=== PATIENT | male | born 1930 | race Caucasian/White ===

== ENCOUNTER 2019-05-05 03:15 | Inpatient (IN) | payer MEDICARE, BC ==
[2019-05-05 04:31] LABS: Troponin I 0.048 ng/mL (< 0.028)
[2019-05-05 05:29] VITALS: BMI 26.3
[2019-05-05 07:19] LABS: Troponin I 0.041 ng/mL (< 0.028)
[2019-05-05] MEDS ORDERED: Senokot S 8.6-50 MG TAB PO PRN (08:22)
[2019-05-05] MEDS ORDERED: Dextrose 50% Abboject 50 ML SYRINGE SLOW IVP PRN (08:22)
[2019-05-05] MEDS ORDERED: Acetaminophen 325 MG TAB PO PRN (08:22)
[2019-05-05] MEDS ORDERED: HumaLOG 300 UNITS/3 ML VIAL SC PRN ×2 (08:22)
[2019-05-05] MEDS ORDERED: Dextrose 5% in Water 1,000 ML IV PRN (08:22)
[2019-05-05] MEDS ORDERED: Bisacodyl 5 MG TAB PO PRN (08:22)
[2019-05-05] MEDS ORDERED: glyBURIDE 5 MG TAB PO SCH (09:00)
[2019-05-05] MEDS: Alogliptin 25 MG TAB PO SCH (09:37)
[2019-05-05] MEDS: Lisinopril 5 MG TAB PO SCH (09:37)
[2019-05-05] MEDS: Potassium Chloride 10 MEQ TAB PO SCH (09:37)
[2019-05-05] MEDS: Tamsulosin HCl 0.4 MG CAP PO SCH ×2 (09:37→09:44)
[2019-05-05] MEDS: Famotidine 20 MG TAB PO SCH ×2 (09:37→20:23)
[2019-05-05] MEDS: Apixaban 5 MG TAB PO SCH ×2 (09:37→20:23)
--- NOTE | 2019-05-05 10:02 | HP ---
PRIMARY CARE PHYSICIAN: Dr. Urbina. CHIEF COMPLAINT: "I couldn't breathe last night." HISTORY OF PRESENT ILLNESS: Mr. Pantoja is a pleasant 88-year-old gentleman, who has a history of coronary artery disease as well as diabetes mellitus. He says that the night before last, he was having some difficulty breathing. He says it was mostly when he tried to lay down at night and he says it was little bit scary. He says he has never had any problems like this before and then the night prior to admission, it happened once again. He denied having any chest pain. No palpitations that he could feel. He says he felt kind of rotten in the last few days and felt like something was "brewing" and as a result, he came to the ER for evaluation. In the ER, he had a chest x-ray as well as a CT angiogram. The CTA of the chest was negative for PE, but did demonstrate bilateral pleural effusions and increased pulmonary vascular markings consistent with congestive heart failure and he is being admitted for this. He also notes some swelling in his feet, but denies any leg swelling. He denies any dyspnea on exertion or chest pain with dyspnea. He says his only other complaints are being a little bit constipated and having a runny nose and a slight cough. REVIEW OF SYSTEMS: CONSTITUTIONAL: There has been no fevers or chills. No night sweats. No weight loss. HEENT: No headaches. No dizziness. No visual changes. No sore throat. He did have some rhinorrhea. NECK: No neck pain. No adenopathy. PULMONARY: He has had a dry cough. No wheezing. No rhonchi. CARDIOVASCULAR: As the history of present illness. GASTROINTESTINAL: He complains of some constipation, but no hematuria. No hematochezia. No melena. GENITOURINARY: There is no urinary frequency. No urgency. No hematuria. MUSCULOSKELETAL: No muscle pains, weakness, or joint pains. NEUROLOGIC: No focal weakness or numbness. No seizures. PSYCHIATRIC: No symptoms of anxiety or depression. SKIN AND INTEGUMENT: No skin changes. No rash. PAST MEDICAL HISTORY: Significant for coronary artery disease, diabetes mellitus type 2, hypertension, and atrial flutter. PAST SURGICAL HISTORY: He has had a lap chandrakant, stent placement, ablation, bilateral hip surgery, cataract surgeries, and an ablation for atrial flutter. ALLERGIES: NO KNOWN DRUG ALLERGIES. FAMILY HISTORY: He says his father had heart disease and he says his brother may have, but he lived to be . SOCIAL HISTORY: He is . He says he has been for 65 years. He has 4 children. When asked if he would want to be resuscitated, he says, "no, please just let me go on" and therefore, he does not want any chest compressions or intubation and therefore, he is a DNR. CURRENT MEDICATIONS: His current medications are taken from the ER records and include; 1. Eliquis 5 mg twice daily. 2. Quinapril 5 mg once a day. 3. Potassium chloride 20 mEq one tablet twice a day. 4. Furosemide 40 mg daily. 5. Aspirin 81 mg daily. 6. Meclizine 25 mg a day. 7. Multivitamin once daily. 8. Glyburide 5 mg once a day. 9. Januvia 25 mg once daily. 10. Atorvastatin 40 mg daily. 11. Flomax 0.4 mg daily. PHYSICAL EXAMINATION: GENERAL: He is alert and oriented. He appears to be in no acute distress. He is well developed and well nourished. VITAL SIGNS: Blood pressure was 128/77, heart rate 93, respiratory rate of 22, and temperature is 97.4. HEENT: His pupils are equal, round, and reactive to light and accommodation. Extraocular muscles are intact. His sclerae are anicteric. Throat, no erythema, no exudates. NECK: No adenopathy. No bruits. LUNGS: He has bilateral rales to about the mid to upper lung field and decreased breath sounds at both bases. There was no wheezing. No rhonchi. Normal excursion. CARDIOVASCULAR: He has a normal S1 and S2. There is no S3 or S4. He did have a slight grade 2/6 systolic murmur. No clicks or rubs. No gallop. ABDOMEN: Soft. It is nontender and nondistended. Positive for bowel sounds. There is no rebound. No guarding. No organomegaly. EXTREMITIES: He had no calf tenderness. No joint effusions. NEUROLOGIC: His cranial nerves are intact. Muscle strength is 5/5 in both his upper and lower extremities. SKIN AND INTEGUMENT: He does have some chronic venous stasis changes on both lower extremities. 1+ to 2+ pedal edema. He does have palpable dorsalis pedis pulses. No other significant skin lesions. IMAGING RESULTS: This is by my reading on his EKG is sinus rhythm, the rate is 99. There were some nonspecific ST wave changes. On his chest x-ray, there was some evidence of cardiomegaly as well as increased pulmonary vascular markings and obscuration of both hemidiaphragms. This is also by my reading. He had a CT angiogram of the chest showing bilateral pulmonary edema as well as bilateral pleural effusions. LABORATORY RESULTS: White blood cell count 10, hemoglobin 13.7, hematocrit is 42.8, and platelet count is 147. Sodium 142, potassium 3.7, chloride is 108, CO2 is 25, BUN of 13, creatinine 0.94, and glucose is 162. Natriuretic peptide was 1264. ASSESSMENT AND PLAN: 1. This is a pleasant 88-year-old gentleman, who presents to the emergency room with shortness of breath. He says it is primarily when he lays back. Therefore, this could be considered orthopnea. He also has an elevated BNP as well as radiographic evidence of volume overload in the setting of known heart disease. He will be admitted for congestive heart failure exacerbation. He has already been started on IV Lasix. We will continue this as well as his SULY inhibitor, the quinapril and we will contact Dr. Hurst's office to see when and if he has had his last echo in the last 6 months to year. If there has not been a recent echo, then we will go ahead and obtain one. 2. Diabetes mellitus. We will continue his home medications as well as a sliding scale. 3. Coronary artery disease. This appears to be clinically stable. However, if his echo shows significant change in his ejection fraction, then Cardiology may need to be consulted and ischemic heart disease ruled out. 4. Chronic anticoagulation. We will continue Eliquis. This is likely due to his history of atrial flutter in the past and as such, he will not need any deep venous thrombosis prophylaxis. Job ID: [id number]
[2019-05-05] MEDS: Furosemide 40 MG/4 ML VIAL SLOW IVP SCH (14:13)
[2019-05-05] MEDS: Atorvastatin Calcium 40 MG TAB PO SCH (20:23)
[2019-05-06 05:02] LABS: #Basophils 0.1 thou/uL (0.0-0.2); #Eosinphils 0.3 thou/uL (0.0-0.7); #Monocytes 0.9 thou/uL (0.11-0.59); #Neutrophils 6.4 thou/uL (1.40-6.50); %Basophils 0.7 % (0.0-1.0); %Eosinophils 2.8 % (0.0-10.0); %Lymphocytes 20.9 % (21.0-51.0); %Monocytes 9.6 % (0.0-10.0); %Neutrophils 66.1 % (42.0-75.0); Hemoglobin 13.2 g/dL (14.0-18.0); Mean Corpuscular HGB CONC 32.8 g/dL (32.0-36.0); Mean Corpuscular Hemoglobin 29.1 pg (27.0-31.0); Mean Corpuscular Volume 88.8 fL (78.0-98.0); Mean Platelet Volume 9.5 fL (7.4-10.4); Platelet Count 135 thou/uL (130-400); RBC Distribution Width 13.6 % (11.5-14.5); Red Blood Cell (RBC) Count 4.55 mill/uL (4.70-6.10); White Blood Cell (WBC) Count 9.7 thou/uL (4.8-10.8)
[2019-05-06 05:24] LABS: Anion Gap 14 mmol/L (10-20); BUN (Urea Nitrogen) 14 mg/dL (8.4-25.7); Calc. Creatinine Clearance 93 mL/min (70-130); Calcium 9.3 mg/dL (7.8-10.44); Carbon Dioxide 26 mmol/L (23-31); Chloride 102 mmol/L (98-107); Estimated GFR-MDRD Greater than 90; Glucose 83 mg/dL (83-110); Potassium 3.1 mmol/L (3.5-5.1); Sodium 139 mmol/L (136-145)
[2019-05-06] MEDS: Furosemide 40 MG/4 ML VIAL SLOW IVP SCH ×2 (06:08→15:10)
[2019-05-06] MEDS ORDERED: Potassium Chloride 20 MEQ TAB PO SCH ×4 (08:00→16:00)
[2019-05-06] MEDS: Potassium Chloride 10 MEQ TAB PO SCH (09:19)
[2019-05-06] MEDS: glyBURIDE 5 MG TAB PO SCH (09:20)
[2019-05-06] MEDS: Alogliptin 25 MG TAB PO SCH (09:20)
[2019-05-06] MEDS: Famotidine 20 MG TAB PO SCH ×2 (09:20→20:37)
[2019-05-06] MEDS: Apixaban 5 MG TAB PO SCH ×2 (09:20→20:38)
[2019-05-06] MEDS: Lisinopril 5 MG TAB PO SCH (09:20)
[2019-05-06] MEDS: Tamsulosin HCl 0.4 MG CAP PO SCH (09:20)
--- NOTE | 2019-05-06 11:22 | PDOC.HOSPP ---
- Subjective Encounter Date: 05/06/19 Encounter Time: 10:00 Subjective: Mr. Pantoja was seen today in follow-up of CHF exacerbation. He reports feeling much better. He says he did not have trouble sleeping due to shortness of breath last night. - Objective Vital Signs & Weight: Vital Signs (12 hours) Temp Pulse Resp BP BP BP Pulse Ox 05/06/19 09:20 68 120/90 05/06/19 07:29 98 F 68 32 H 120/90 96 05/06/19 04:00 97.3 F L 93 20 125/85 95 05/06/19 00:00 98.0 F 71 19 106/65 99 Weight Weight 217 lb 11.2 oz I&O: 05/05/19 05/06/19 05/07/19 06:59 06:59 06:59 Intake Total 1320 Output Total 750 1800 1165 Balance -898 -018 -3699 Result Diagrams: 05/06/19 04:27 05/06/19 04:27 Additional Labs: Accuchecks 05/06/19 05/05/19 05/05/19 05:48 19:44 17:57 POC Glucose 79 142 H 86 05/05/19 16:48 POC Glucose 67 L ROS - Medication Medications: Active Medications Generic Name Dose Route Start Last Admin Trade Name Freq PRN Reason Stop Dose Admin Alogliptin Benzoate 25 mg 05/05/19 09:00 05/06/19 09:20 Alogliptin PO 25 mg DAILY TANVI Administration Apixaban 5 mg 05/05/19 09:00 05/06/19 09:20 Eliquis PO 5 mg BID TANVI Administration Atorvastatin Calcium 40 mg 05/05/19 21:00 05/05/19 20:23 Lipitor PO 40 mg HS TANVI Administration Famotidine 20 mg 05/05/19 09:00 05/06/19 09:20 Pepcid PO 20 mg BID TANVI Administration Furosemide 40 mg 05/05/19 14:00 05/06/19 06:08 Lasix SLOW IVP 40 mg 0600,1400 TANVI Administration Glyburide 5 mg 05/06/19 07:30 05/06/19 09:20 Diabeta PO 5 mg DAILY-AC TANVI Administration Insulin Human Lispro 0 units 05/05/19 08:22 05/05/19 11:28 Humalog SC 2 units .MODERATE SLIDING SC PRN Administration Moderate Correctional Scale Lisinopril 5 mg 05/05/19 09:00 05/06/19 09:20 Zestril PO 5 mg DAILY TANVI Administration Potassium Chloride 10 meq 05/05/19 09:00 05/06/19 09:19 Klor-Con 10 PO 10 meq DAILY TANVI Administration Tamsulosin HCl 0.4 mg 05/05/19 09:00 05/06/19 09:20 Flomax PO 0.4 mg DAILY TANVI Administration - Exam Eye: PERRL, anicteric sclera Neck: supple, symmetric, no JVD Heart: RRR, no gallops, no rubs, normal peripheral pulses, II/IV Respiratory: no wheezes, no ronchi, rales (+ rales at both bases, and decreased breath sounds at the bases) Gastrointestinal: soft, non-tender, non-distended, normal bowel sounds, no palpable masses Extremities: no cyanosis, no clubbing, no edema Hosp A/P (1) Acute on chronic diastolic CHF (congestive heart failure), NYHA class 3 Code(s): I50.33 - ACUTE ON CHRONIC DIASTOLIC (CONGESTIVE) HEART FAILURE Status : Acute (2) DM2 (diabetes mellitus, type 2) Status: Chronic Qualifiers: Diabetes mellitus middle or intermediate school principal insulin use: without middle or intermediate school principal use Diabetes mellitus complication status: with unspecified complications (3) HTN (hypertension) Code(s): I10 - ESSENTIAL (PRIMARY) HYPERTENSION Status: Chronic Qualifiers: Hypertension type: essential hypertension Qualified Code(s): I10 - Essential (primary) hypertension - Plan * Acute on chronic diastolic heart failure- improving- continue to diurese * Acute systolic heart failure- his EF is lower than a few months ago * Will consult Dr. Hurst as well * HTN- blood pressure is controlled * DM- blood glucose is a bit brittle- will hold off on correction for now, he may need to be changed from Glyburide to Amaryl
--- NOTE | 2019-05-06 17:14 | CON ---
DATE OF CONSULTATION: HISTORY OF PRESENT ILLNESS: An 88-year-old gentleman, who presents with increasing dyspnea. The patient has a previous history of coronary artery disease. He has previously undergone PTCA and stent placement in 1997. The patient has done remarkably well on medical therapy. He also has a history of paroxysmal atrial fibrillation.H had been on anticoagulation therapy. The patient has known aortic stenosis. He has been asymptomatic until a few weeks ago, he started noticing increasing dyspnea with minimal exertion. The patient presented to emergency room with marked dyspnea. He denied having any chest discomfort. PAST MEDICAL HISTORY: 1. Coronary artery disease. 2. Atrial fibrillation. 3. Hypertension. 4. Dyslipidemia. 5. Diabetes mellitus. 6. History of atrial flutter/fibrillation. PAST SURGICAL HISTORY: Hip surgery and cataract surgery. ALLERGIES: NO KNOWN DRUG ALLERGIES. FAMILY HISTORY: No strong family history of heart disease. SOCIAL HISTORY: Nonsmoker. MEDICATIONS: See nursing list. REVIEW OF SYSTEMS: Ten-point system otherwise unremarkable. PHYSICAL EXAMINATION: GENERAL/VITAL SIGNS: Well-developed gentleman, in no acute distress with a blood pressure of 115/72. NECK: No jugular venous distention. LUNGS: Few crackles in both bases. HEART: Regular rate and rhythm. Normal S1 and S2 with a 3/6 systolic murmur. ABDOMEN: Nondistended. EXTREMITIES: Showed trace edema. VASCULAR: Radial pulses are 2+. LABORATORY RESULTS: White blood cell count 9.7, hemoglobin 13.2, hematocrit 40.4, platelets 135. Sodium 139, potassium 3.1, chloride 102, bicarbonate 26, BUN 14, creatinine 0.76. Troponin is 0.014. His EKG revealed sinus rhythm with premature ventricular contractions. IMPRESSION: 1. Congestive heart failure. 2. Aortic stenosis. 3. Cardiomyopathy. 4. Severe mitral regurgitation. 5. History of PTCA and stent placement. 6. Diabetes mellitus. This gentleman presents with new onset congestive heart failure. His followup echocardiogram revealed severe aortic stenosis. With his advanced age and lower ejection fraction, we would recommend the patient be evaluated for TAVR. At this time, the patient is being diuresed with IV Lasix. We will follow this patient with you in this hospitalization, Job ID: [id number] [facility]
[2019-05-06] MEDS: Atorvastatin Calcium 40 MG TAB PO SCH (20:38)
[2019-05-07] MEDS: Furosemide 40 MG/4 ML VIAL SLOW IVP SCH ×2 (06:36→13:37)
[2019-05-07] MEDS: glyBURIDE 5 MG TAB PO SCH (07:33)
[2019-05-07] MEDS ORDERED: Potassium Chloride 20 MEQ TAB PO SCH (09:00)
[2019-05-07 09:07] LABS: Anion Gap 12 mmol/L (10-20); BUN (Urea Nitrogen) 13 mg/dL (8.4-25.7); Calc. Creatinine Clearance 79 mL/min (70-130); Calcium 9.4 mg/dL (7.8-10.44); Carbon Dioxide 29 mmol/L (23-31); Chloride 103 mmol/L (98-107); Estimated GFR-MDRD 80; Glucose 101 mg/dL (83-110); Sodium 140 mmol/L (136-145)
[2019-05-07] MEDS: Famotidine 20 MG TAB PO SCH (09:28)
[2019-05-07] MEDS: Alogliptin 25 MG TAB PO SCH (09:28)
[2019-05-07] MEDS: Apixaban 5 MG TAB PO SCH (09:28)
[2019-05-07] MEDS: Lisinopril 5 MG TAB PO SCH (09:29)
[2019-05-07] MEDS: Tamsulosin HCl 0.4 MG CAP PO SCH (09:38)
[2019-05-07 12:04] VITALS: BP 103/64; TEMP 97.4
--- NOTE | 2019-05-07 12:24 | PDOC.HOSPP ---
- Subjective Encounter Date: 05/07/19 Encounter Time: 12:23 Subjective: Mr. Pantoja was seen today in follow-up of CHF exacerbation. He does not have any complaints. - Objective Vital Signs & Weight: Vital Signs (12 hours) Temp Pulse Pulse Pulse Resp BP BP 05/07/19 12:00 97.4 F L 65 16 05/07/19 09:29 94 05/07/19 09:06 100 89 141/77 H 129/68 05/07/19 08:00 05/07/19 07:56 97.6 F 94 16 05/07/19 03:52 97.4 F L 89 16 BP Pulse Ox Pulse Ox Pulse Ox 05/07/19 12:00 103/64 95 05/07/19 09:29 05/07/19 09:06 97 95 05/07/19 08:00 94 L 05/07/19 07:56 125/74 94 L 05/07/19 03:52 122/80 96 Weight Weight 217 lb 1.6 oz I&O: 05/06/19 05/07/19 05/08/19 06:59 06:59 06:59 Intake Total 1320 2391 Output Total 1800 2430 Balance -480 -39 Result Diagrams: 05/06/19 04:27 05/07/19 08:24 Additional Labs: Accuchecks 05/07/19 05/07/19 05/06/19 10:48 05:58 20:36 POC Glucose 171 H 91 160 H 05/06/19 17:25 POC Glucose 76 ROS - Medication Medications: Active Medications Generic Name Dose Route Start Last Admin Trade Name Freq PRN Reason Stop Dose Admin Alogliptin Benzoate 25 mg 05/05/19 09:00 05/07/19 09:28 Alogliptin PO 25 mg DAILY TANVI Administration Apixaban 5 mg 05/05/19 09:00 05/07/19 09:28 Eliquis PO 5 mg BID TANVI Administration Atorvastatin Calcium 40 mg 05/05/19 21:00 05/06/19 20:38 Lipitor PO 40 mg HS TANVI Administration Famotidine 20 mg 05/05/19 09:00 05/07/19 09:28 Pepcid PO 20 mg BID TANVI Administration Furosemide 40 mg 05/05/19 14:00 05/07/19 06:36 Lasix SLOW IVP 40 mg 0600,1400 TANVI Administration Glyburide 5 mg 05/06/19 07:30 05/07/19 07:33 Diabeta PO 5 mg DAILY-AC TANVI Administration Insulin Human Lispro 0 units 05/05/19 08:22 05/05/19 11:28 Humalog SC 2 units .MODERATE SLIDING SC PRN Administration Moderate Correctional Scale Lisinopril 5 mg 05/05/19 09:00 05/07/19 09:29 Zestril PO 5 mg DAILY TANVI Administration Potassium Chloride 20 meq 05/07/19 09:00 05/07/19 09:29 K-Dur PO 20 meq QAM TANVI Administration - Exam Eye: PERRL, anicteric sclera Neck: supple, symmetric, no JVD, no thyromegaly Heart: RRR, murmur present Respiratory: CTAB, no wheezes, no rales, no ronchi Gastrointestinal: soft, non-tender, non-distended, normal bowel sounds Extremities: no edema Hosp A/P (1) Acute on chronic diastolic CHF (congestive heart failure), NYHA class 3 Code(s): I50.33 - ACUTE ON CHRONIC DIASTOLIC (CONGESTIVE) HEART FAILURE Status : Acute (2) DM2 (diabetes mellitus, type 2) Status: Chronic Qualifiers: Diabetes mellitus intermediate manager insulin use: without intermediate manager use Diabetes mellitus complication status: with unspecified complications (3) HTN (hypertension) Code(s): I10 - ESSENTIAL (PRIMARY) HYPERTENSION Status: Chronic Qualifiers: Hypertension type: essential hypertension Qualified Code(s): I10 - Essential (primary) hypertension - Plan * Acute on chronic diastolic heart failure-improved * Acute systolic heart failure- likely from aortic stenosis. Cardiology evaluation noted * HTN- blood pressure is controlled * DM- blood glucose is stable * Stable for discharge home
[2019-05-07] MEDS ORDERED: Tamsulosin HCl 0.4 MG CAP PO SCH (21:00)
--- NOTE | 2019-05-07 23:27 | DIS ---
DATE OF ADMISSION: 05/05/2019 DATE OF DISCHARGE: 05/07/2019 PRIMARY CARE PHYSICIAN: Delvin Urbina MD DISCHARGE DISPOSITION: Home. PRIMARY DISCHARGE DIAGNOSES: 1. Acute on chronic systolic heart failure. 2. Acute respiratory failure secondary to #1. 3. Critical aortic stenosis. 4. Severe mitral regurgitation. 5. Hypertension. 6. Diabetes mellitus, type 2. 7. Dyslipidemia. DISCHARGE MEDICATIONS: 1. Carvedilol 3.125 mg twice daily. 2. Lasix 40 mg twice a day. 3. Aspirin 81 mg daily. 4. Eliquis 5 mg twice daily. 5. Tylenol 1000 mg q.6 as needed. 6. Flomax 0.4 mg daily. 7. Januvia 50 mg daily. 8. Accupril 10 mg a day. 9. Potassium chloride 10 mEq daily. 10. Multivitamin once a day. 11. Antivert 12.5 mg daily. 12. Glyburide 5 mg daily. 13. Lipitor 40 mg daily. 14. Amlodipine atorvastatin 10/40 at bedtime. PROCEDURES DONE DURING THE ADMISSION: The patient had an echocardiogram in which the ejection fraction was estimated at 25% to 30%. There was severe aortic stenosis with a valve separation of 0.81 cm. The patient also had severe mitral regurgitation. CODE STATUS: DNAR. ALLERGIES: NO KNOWN DRUG ALLERGIES. HOSPITAL COURSE: Mr. Pantoja is a pleasant 88-year-old gentleman, who stated that he was having difficulty breathing. He had not had a problem like this before. He came to the ER and was evaluated and found to be in acute heart failure. He had a previous echo in which his ejection fraction was normal. A repeat echo was done on this occasion, which is several months from his prior demonstrating a significant drop in his ejection fraction as well as worsening aortic stenosis. His inspector integrated circuits was consulted. It is recommended that he undergo aortic valve replacement but given his advanced age, low ejection fraction and general overall weakness, it is recommended that he undergo a transcutaneous aortic valve replacement or TAVR. Dr. Hurst will see him in the outpatient setting in order to have this arranged and his appointment with Dr. Hurst was made prior to his discharge. Job ID: [id number]
--- NOTE | 2019-05-11 02:03 | PQF ---
[employer] Crystal Reports Winform ViewerAMILCAR AVENDAÑO [place] MD [id number] [facility] [place], [place]-[id number] CLINICAL DOCUMENTATION CLARIFICATION FORM: POST DISCHARGE Addendum to original discharge summary date: ____ Late entry note date: __ DATE: 05/11/2019 ATTN: [place] MD Please exercise your independent, professional judgment in responding to the clarification form. Clinical indicators are provided on the bottom of this form for your review Please check appropriate box(s) to clarify if the following diagnosis has been ruled in or ruled out: Acute respiratory failure [ X ] Ruled in diagnosis [ X] Continue to treat [ ] Resolved [ ] Ruled out diagnosis [ ] Cannot rule out diagnosis [ ] Other diagnosis [ ] Unable to determine In addition, please specify: Present on Admission (POA): [ X ] Yes [ ] No [ ] Unable to determine For continuity of documentation, please document condition throughout progress notes and discharge summary. Thank You. CLINICAL INDICATORS - SIGNS / SYMPTOMS / LABS -Acute respiratory failure sec to CHF-DS, 05/07, [place] MD -O2 [id number] signs, report 05/07 -He has bilateral rales to about the mid to upper lung field and decreased breath sounds at both bases-H&P, 05/05, [place] MD RISK FACTORS -Acute on chronic systolic heart failure-DS, 05/07, [place] MD -Aortic stenosis-Hospital PN, 05/07, [place] MD TREATMENTS O2 delivery method: Nasal Cannula-Vital signs, report 05/05, (This form is maintained as a part of the permanent medical record) [id number]. All Rights Reserved Anh Zhang [not provided] [not provided] LIZETH
== END 2019-05-07 15:28 | disposition home health service (06) | DRG 291 ==
LOC: ERS 03:15 → 2SE 03:45
PROVIDERS: ADMIT Hospitalist; ATTEND Hospitalist
DX: I11.0 Hypertensive heart disease with heart failure (principal); J96.00 Acute respiratory failure, unspecified whether with hypoxia or hypercapnia; I35.0 Nonrheumatic aortic (valve) stenosis; Z66 Do not resuscitate; I50.43 Acute on chronic combined systolic (congestive) and diastolic (congestive) heart failure; I35.1 Nonrheumatic aortic (valve) insufficiency; E11.9 Type 2 diabetes mellitus without complications; N40.0 Benign prostatic hyperplasia without lower urinary tract symptoms; I25.10 Atherosclerotic heart disease of native coronary artery without angina pectoris; I42.9 Cardiomyopathy, unspecified; I34.0 Nonrheumatic mitral (valve) insufficiency; I48.0 Paroxysmal atrial fibrillation; E78.5 Hyperlipidemia, unspecified; Z96.643 Presence of artificial hip joint, bilateral; Z79.01 Long term (current) use of anticoagulants; Z95.5 Presence of coronary angioplasty implant and graft; Z90.49 Acquired absence of other specified parts of digestive tract; I25.2 Old myocardial infarction; Z98.42 Cataract extraction status, left eye; Z98.41 Cataract extraction status, right eye
CPT/HCPCS: 36415; 36416; 80048; 83880; 85025; 93306; 93798; 99285; J1940